=== PATIENT | female | born 1990 | race Asian ===

== ENCOUNTER 2023-04-20 14:02 | Inpatient (IN) ==
[2023-04-20 15:01] LABS: ABS Eosinophils 0.1 10^3/uL (0.0-0.5); ABS Lymphocytes 1.9 10^3/uL (1.0-4.8); ABS Monocytes 0.4 10^3/uL (0.0-0.9); ABS Neutrophils 8.1 10^3/uL (1.5-7.6); Eosinophil % 1.2 %; Hematocrit 40.7 % (35-45); Hemoglobin 13.4 g/dL (11.5-14.3); Lymphocyte % 18.3 %; Mean Corpuscular Hemoglobin 29.3 pg (27-33); Mean Corpuscular Hgb Conc 32.9 g/dL (31-36); Mean Corpuscular Volume 89.1 fL (80-97); Mean Platelet Volume 8.1 fL (7.5-11.2); Platelet Count 298 10^3/uL (150-450); Red Blood Count 4.56 10^6/uL (3.63-4.92); Red Cell Distribution Width 12.4 % (12-17); White Blood Count 10.7 10^3/uL (3.8-11.8)
[2023-04-20 15:05] LABS: Urine Appearance Cloudy; Urine Bilirubin Negative (Negative); Urine Blood 3+ (Negative); Urine Color Yellow; Urine Glucose Negative (Negative); Urine Ketones Trace (Negative); Urine Nitrite Negative (Negative); Urine Protein 1+(30 mg/dL) (Negative); Urine Specific Gravity 1.019 (1.002-1.030); Urine Urobilinogen Negative (Negative)
[2023-04-20 15:17] LABS: Urine Bacteria Absent (Absent); Urine Red Blood Cell Trace(0-2/hpf) (Absent); Urine Squamous Epithelial Cell Present (Absent); Urine White Blood Cell Trace(0-5/hpf) (Absent)
[2023-04-20 15:31] LABS: ALT 10 U/L (7-52); AST 15 U/L (13-39); Albumin 4.8 g/dL (3.2-5.2); Albumin/Globulin Ratio 1.3 (1-3); Alkaline Phosphatase 33 U/L (35-149); Anion Gap 9 mmol/L (2-16); Blood Urea Nitrogen 12 mg/dL (6-24); CO2 Carbon Dioxide 23 mmol/L (22-32); Calcium 9.9 mg/dL (8.6-10.3); Chloride 104 mmol/L (101-111); Creatinine, Serum 0.75 mg/dL (0.51-0.95); Globulin 3.6 g/dL (2-4); Glucose 87 mg/dL (70-100); Sodium 136 mmol/L (135-145); Total Bilirubin 0.6 mg/dL (0.2-1.0); Total Protein 8.4 g/dL (6.4-8.9); eGFR CKD-EPI 108.4 (>60)
[2023-04-20 15:32] LABS: Acetaminophen < 15 mcg/mL; Alcohol, S < 13 mg/dL (<13); Salicylate < 2.50 mg/dL (<30)
[2023-04-20 15:36] LABS: HCG Pregnancy < 0.60 mIU/mL
[2023-04-20 15:48] LABS: Urine Benzodiazepine Screen None Detected (None Detect); Urine Cannabinoids Screen None Detected (None Detect); Urine Opiates Screen None Detected (None Detect)
[2023-04-20] MEDS ORDERED: Al Hydrox/Mg Hydrox/Simet LIQ 30 ML UDC PO PRN (22:02)
[2023-04-21 08:32] LABS: HDL Cholesterol 69.6 mg/dL
[2023-04-21] MEDS ORDERED: Vitamin THERAPEUTIC TAB PO SCH (09:00)
[2023-04-21 09:56] VITALS: BP 113/71
== END 2023-04-21 16:00 | disposition home or self-care (01) | DRG 882 ==
LOC: ED 14:02 → EDHOLD 20:35 → BSU 21:42
PROVIDERS: ADMIT Psychiatry & Neurology Psychiatry; ATTEND Psychiatry & Neurology Psychiatry